=== PATIENT | female | born 1985 | race Caucasian/White ===

== ENCOUNTER → 2016-11-09 | Outpatient (CLI) | payer OTHER ==
[~2016-11-09] MED LIST: HUMERA INJ; IBUP200C
== END | disposition home or self-care (01) ==
LOC: CFH 16:02
PROVIDERS: ATTEND Physical Medicine & Rehabilitation
DX: M54.12 Radiculopathy, cervical region (principal); M79.1 Myalgia
CPT/HCPCS: 72141

== ENCOUNTER 2016-12-13 22:40 | Emergency (ER) | payer OTHER ==
[~2016-12-13] VITALS: Ht 165.1 cm; Wt 90.0 kg
== END 2016-12-13 23:05 | disposition home or self-care (01) ==
LOC: ED 22:47
DX: S80.811A Abrasion, right lower leg, initial encounter (principal); S60.412A Abrasion of right middle finger, initial encounter; X58.XXXA Exposure to other specified factors, initial encounter; Y93.89 Activity, other specified; Y92.69 Other specified industrial and construction area as the place of occurrence of the external cause; Y99.8 Other external cause status
CPT/HCPCS: 99281

== ENCOUNTER → 2017-02-11 | Outpatient (CLI) | payer OTHER | END | disposition home or self-care (01) | LOC: CFH 15:27 | PROVIDERS: ATTEND Physician Assistant | DX: M75.51 Bursitis of right shoulder (principal) ==

== ENCOUNTER → 2017-02-17 | Outpatient (CLI) | payer OTHER | END | disposition home or self-care (01) | LOC: LAB 17:20 | PROVIDERS: ATTEND Psychiatry & Neurology Neurology | DX: R51 Headache (principal) | CPT/HCPCS: 36415; 85651; 86140 ==

== ENCOUNTER → 2017-03-15 | Outpatient (CLI) | payer OTHER ==
[~2017-03-15] MED LIST changes: +GADOBUTROL 10 MMOL/10 ML VIAL ONE
== END | disposition home or self-care (01) ==
LOC: CFH 14:57
PROVIDERS: ATTEND Psychiatry & Neurology Neurology
DX: R51 Headache (principal)
CPT/HCPCS: 70553; A9585

== ENCOUNTER → 2017-05-05 | Outpatient (CLI) | payer OTHER ==
[~2017-05-05] MED LIST changes: -GADOBUTROL 10 MMOL/10 ML VIAL ONE; -IBUP200C; +IBUP200C5
== END | disposition home or self-care (01) ==
LOC: CARD 12:29
PROVIDERS: ATTEND Physician Assistant Medical
DX: R06.02 Shortness of breath (principal); R07.89 Other chest pain
CPT/HCPCS: 94060; 94726; 94729

== ENCOUNTER → 2017-05-11 | Outpatient (CLI) | payer OTHER ==
[~2017-05-11] MED LIST changes: +OMNIPAQUE 350 MG/ML, 100ML BOTTLE ONE
== END | disposition home or self-care (01) ==
LOC: CFH 09:10
PROVIDERS: ATTEND Physician Assistant Medical
DX: R91.1 Solitary pulmonary nodule (principal)
CPT/HCPCS: 71275; Q9967

== ENCOUNTER → 2018-01-10 | Outpatient (CLI) | payer OTHER ==
[~2018-01-10] MED LIST changes: -OMNIPAQUE 350 MG/ML, 100ML BOTTLE ONE
== END | disposition home or self-care (01) ==
LOC: CFH 15:30
PROVIDERS: ATTEND Nurse Practitioner Primary Care
DX: M75.51 Bursitis of right shoulder (principal); M23.331 Other meniscus derangements, other medial meniscus, right knee

== ENCOUNTER → 2018-08-25 | Outpatient (CLI) | payer OTHER ==
[~2018-08-25] MED LIST changes: +IBUP-1623; -IBUP200C5
[2018-08-25 07:30] LABS: BASOPHILS # (AUTO) 0.05 x10^3/uL (0-0.1); BASOPHILS % (AUTO) 1 % (0-1); EOSINOPHILS # (AUTO) 0.11 x10^3/uL (0-0.4); EOSINOPHILS % (AUTO) 2 % (1-7); LYMPHOCYTES # (AUTO) 2.85 x10^3/uL (1-3.4); LYMPHOCYTES % (AUTO) 42 % (22-44); MD NO; MEAN CORPUSCULAR HEMOGLOBIN 29.9 pg (27.0-34.8); MEAN CORPUSCULAR HGB CONC 33.9 g/dL (32.4-35.8); MEAN CORPUSCULAR VOLUME 88.1 fL (80-100); MEAN PLATELET VOLUME 7.5 fL (7.4-10.4); MONOCYTES # (AUTO) 0.71 x10^3/uL (0.2-0.8); MONOCYTES % (AUTO) 11 % (2-9); NEUTROPHILS % (AUTO) 45 % (42-75); PLATELET COUNT 314 x10^3/uL (130-400); RED BLOOD COUNT 4.48 x10^6/uL (3.82-5.3); RED CELL DISTRIBUTION WIDTH 12.4 % (9.6-15.2)
[2018-08-25 07:37] LABS: ALANINE AMINOTRANSFERASE 27 U/L (12-78); ALBUMIN 3.5 g/dL (3.4-5.0); ANION GAP 9 mmol/L (5-15); CALCIUM 8.4 mg/dL (8.5-10.1); CHLORIDE 105 mmol/L (98-107); CREATININE 0.74 mg/dL (0.55-1.02)
[2018-08-25 07:40] LABS: ALKALINE PHOSPHATASE 80 U/L (45-117); BILIRUBIN,TOTAL 0.3 mg/dL (0.2-1.0); TOTAL PROTEIN 7.3 g/dL (6.4-8.2)
== END | disposition home or self-care (01) ==
LOC: LAB 07:09
PROVIDERS: ATTEND Dermatology
DX: L40.8 Other psoriasis (principal); Z79.899 Other long term (current) drug therapy
CPT/HCPCS: 36415; 80053; 85025

== ENCOUNTER → 2018-09-10 | Outpatient (CLI) | payer OTHER | END | disposition home or self-care (01) | LOC: LAB 07:10 | PROVIDERS: ATTEND Dermatology | DX: L40.8 Other psoriasis (principal); Z79.899 Other long term (current) drug therapy | CPT/HCPCS: 36415; 84132 ==